=== PATIENT | male | born 1980 | race Caucasian/White ===

== ENCOUNTER 2019-02-25 10:59 | Outpatient (CLI) | payer MEDICAID, SELFPAY ==
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
== END 2019-02-25 11:19 ==
PROVIDERS: PCP Nurse Practitioner; Visit Provider Nurse Practitioner
DX: M79.671 Pain in right foot (principal); Z87.81 Personal history of (healed) traumatic fracture
CPT/HCPCS: 73630

== ENCOUNTER 2020-12-06 20:05 | Outpatient (REF) | payer SELFPAY ==
[2020-12-06 16:12] LABS: HCT 46.4 % (40.0-50.0); HGB 15.3 g/dL (13.5-17.5); MCH 31.6 pg (27.0-33.0); MCV 95.9 fL (80-95); MPV 10.1 fL (8.0-11.0); Platelet Count 295 10^3/uL (130-400); RBC 4.84 10^6/uL (4.36-5.78); RDW 12.3 % (11.8-14.1); RDW-SD 43.8 fL; WBC 8.34 10^3/uL (4.4-10.8)
[2020-12-06 16:54] LABS: ALT 26 U/L (16-63); AST 21 U/L (15-37); Alkaline Phosphatase 48 U/L (46-116); Anion Gap 8.4 mmol/L (3-11); BUN 13 mg/dL (7-18); Bilirubin, Total 1.2 mg/dL (0.2-1.0); CO2 26.6 mmol/L (21.0-32.0); CREATININE 0.9 mg/dL (0.70-1.30); Calcium 8.9 mg/dL (8.5-10.1); Calculated LDL 100 mg/dL (<100); Chloride 104 mmol/L (98-107); Cholesterol 147 mg/dL (<200); Glucose 99 mg/dL (74-106); HDL Cholesterol 39 mg/dL (40-60); Potassium 4.1 mmol/L (3.5-5.1); Sodium 139 mmol/L (136-145); TSH (W/Ref FT4) 0.66 uIU/mL (0.36-3.74); Total Protein 7.1 g/dL (6.4-8.2); Triglyceride 41 mg/dL (<150)
[2020-12-06 22:55] LABS: PSA, Screening 0.4 ng/mL (0.0-2.5)
[2020-12-09 12:43] LABS: Testosterone, Total 854 ng/dL (240-950)
== END 2020-12-06 20:06 | disposition home or self-care (01) ==
LOC: LBN 20:05
PROVIDERS: PCP Nurse Practitioner; Visit Provider Nurse Practitioner Gerontology
DX: E29.1 Testicular hypofunction (principal); N52.9 Male erectile dysfunction, unspecified; R53.83 Other fatigue; Z12.5 Encounter for screening for malignant neoplasm of prostate
CPT/HCPCS: 80053; 80061; 84153; 84403; 85027; 84443